=== PATIENT | male | born 1995 | race Caucasian/White ===

== ENCOUNTER 2016-10-01 15:59 | Emergency (ER) | payer SELFPAY ==
[~2016-10-01] VITALS: Ht 172.7 cm; Wt 74.1 kg
[~2016-10-01 15:59] MED LIST: Z.0.NO CURRENT MEDS
[2016-10-01 16:01] VITALS: BP 127/68; PULSE 100; RESP 16; TEMP 99.2; O2SAT 98
[2016-10-01] MEDS ORDERED: PHEN1LIQ60 PO (16:13)
[2016-10-01] MEDS ORDERED: TYLE325T PO (16:13)
--- NOTE | 2016-10-01 16:39 | PD ---
HPI Chief Complaint: Cold / Flu Symptoms Time Seen by Provider: 16:33 Travel History International Travel<30 days: No Contact w/Intl Traveler<30days: No Traveled to known affect area: No History of Present Illness HPI 20-year-old male presents to the emergency room for evaluation of sore throat, body aches, and fever that started when he woke up this morning. Sore throat is severe, worse with swallowing and worse on the right side. Maximum temperature was 101.2. Patient has been taking Tylenol, NyQuil, and Motrin without significant relief in symptoms. Patient has history of strep throat and states this feels just as severe. Up-to-date on vaccinations. No chronic medical conditions or daily medications. PFSH Past Medical History Medical History: Denies Significant Hx Diminished Hearing: No Tetanus Vaccination: Unknown Influenza Vaccination: No Past Surgical History Surgical History: No Previous Surgery Social History Alcohol Use: No Tobacco Use: No Substance Use: No Allergies-Medications (Allergen,Severity, Reaction): Coded Allergies: No Known Allergies (Verified , 10/01/16) Reported Meds & Prescriptions Reported Meds & Active Scripts Active Amoxicillin 500 Mg Tab 500 Mg PO BID 10 Days Reported Nyquil Severe Cold/Flu Liq (Ykoqkewvddrfl-Nibkldstub-ZC-Apap Liq) 5-6.25-10-325 Mg/15 Ml Liq 1 Cap PO PRN Tylenol (Acetaminophen) 325 Mg Tab 650 Mg PO Q6H PRN Review of Systems Except as stated in HPI: all other systems reviewed are Neg Physical Exam Narrative GENERAL: Well-nourished, well-developed male in no acute distress. Afebrile. Ambulatory. SKIN: Focused skin assessment warm/dry. HEAD: Normocephalic. EYES: No scleral icterus. No injection or drainage. ENT: Mucosa pink and moist. Severe erythema and bilateral exudates. Halitosis. No uvular edema. No uvular, palatal, or tonsillar deviation. Airway patent. Nasal turbinates appear normal without nasal blood, purulent drainage or septal hematoma. NECK: Supple, trachea midline. No JVD or lymphadenopathy. CARDIOVASCULAR: Regular rate and rhythm without murmurs, gallops, or rubs. RESPIRATORY: Breath sounds equal bilaterally. No accessory muscle use. Data Data Last Documented VS Vital Signs Date Time Temp Pulse Resp B/P Pulse Ox O2 Delivery O2 Flow Rate FiO2 10/01/16 16:01 99.2 100 16 127/68 98 Orders Group A Rapid Strep Screen (10/01/16 16:23) Ketorolac Inj (Toradol Inj) (10/01/16 16:45) Strep Culture (Group A) (10/01/16 16:30) MDM Medical Decision Making Medical Screen Exam Complete: Yes Emergency Medical Condition: Yes Medical Record Reviewed: Yes Differential Diagnosis Streptococcal pharyngitis versus flu versus upper respiratory infection Narrative Course 20-year-old male presents to the emergency room for evaluation sore throat, body aches, and fever that started this morning. Patient is febrile at 101.2 in the emergency room. Physical exam reveals moderate to severe erythema and bilateral exudates of the pharynx. There is halitosis. Airways patent. He was given Toradol for pain, fever, and swelling. Rapid strep is negative however given clinical picture, this is likely false negative. Patient discharged with prescription for amoxicillin. Told to follow up with a primary care physician or return for worsening symptoms. He understands this plan. Diagnosis Primary Impression: Acute streptococcal pharyngitis Referrals: Primary Care Physician Patient Instructions: General Instructions, Strep Throat (ED) Additional Instructions: Rest and drink plenty of fluids. Take amoxicillin as directed, until gone. Take ibuprofen with food as directed, as needed for pain. Follow-up with a primary care physician. Return to the emergency room for worsening symptoms. Med/Other Pt SpecificInfo: Prescription(s) given Scripts Amoxicillin 500 Mg Doq595 Mg PO BID 10 Days Ref 0 Prov:Eric Badillo MD 10/01/16 Disposition: 01 DISCHARGE HOME Condition: Stable Brittany Perez October 01, 2016 16:39
[2016-10-01] MEDS ORDERED: AMOX500T PO (16:40)
[2016-10-01] MEDS ORDERED: KETOROLAC TROMETHAMINE 60 MG/2 ML (IM) VIAL IM ONE (16:45)
== END 2016-10-01 17:17 | disposition home or self-care (01) ==
LOC: PHEFT 15:59
DX: J02.0 Streptococcal pharyngitis (principal)
CPT/HCPCS: 87081; 87880; 96372; 99284; J1885